=== PATIENT | female | born 1950 | race Caucasian/White ===

== ENCOUNTER 2016-09-17 16:15 | Outpatient (CLI) | payer MEDICARE, OTHER | END 2016-09-17 16:16 | LOC: LABRHC 16:15 | PROVIDERS: ATTEND Physician Assistant | DX: R39.15 Urgency of urination (principal); N39.498 Other specified urinary incontinence | CPT/HCPCS: 87088; 87186 ==

== ENCOUNTER 2016-11-06 08:41 | Outpatient (CLI) | payer MEDICARE, OTHER | END 2016-11-06 08:42 | LOC: POD 08:41 | PROVIDERS: ATTEND Podiatrist Public Medicine | DX: E11.51 Type 2 diabetes mellitus with diabetic peripheral angiopathy without gangrene (principal); B35.1 Tinea unguium; G60.0 Hereditary motor and sensory neuropathy; L60.0 Ingrowing nail; M79.674 Pain in right toe(s); M79.675 Pain in left toe(s) | CPT/HCPCS: 11721; G0463 ==

== ENCOUNTER 2016-12-19 08:11 | Outpatient (CLI) | payer MEDICARE, OTHER ==
[2016-12-19 09:12] LABS: eGFR (African) > 60; eGFR (Non-African) > 60
== END 2016-12-19 08:12 ==
LOC: LAB 08:11
PROVIDERS: ATTEND Internal Medicine Cardiovascular Disease
DX: I25.110 Atherosclerotic heart disease of native coronary artery with unstable angina pectoris (principal)
CPT/HCPCS: 36415; 80053; 80061; 82172; 83721

== ENCOUNTER 2017-02-11 08:00 | Outpatient (CLI) | payer MEDICARE, OTHER ==
[2017-02-11 08:29] LABS: BASOPHILS % 0.9 (0.0-1.5); EOSINOPHILS % 2.6 % (0.0-6.8); MEAN CORPUSCULAR HEMOGLOBIN 32.8 pg (28.0-34.0); MEAN CORPUSCULAR VOLUME 98.6 fl (80.0-100.0); MONOCYTES % 5.4 % (0.0-11.0); NEUTROPHILS # 4.8 # k/uL (1.4-7.7)
[2017-02-11 08:48] LABS: eGFR (African) > 60; eGFR (Non-African) > 60
== END 2017-02-11 08:02 ==
LOC: LAB 08:00
PROVIDERS: ATTEND Surgery
DX: I99.8 Other disorder of circulatory system (principal); E11.9 Type 2 diabetes mellitus without complications
CPT/HCPCS: 36415; 80048; 83036; 85025

== ENCOUNTER 2017-02-12 10:30 | Outpatient (CLI) | payer MEDICARE, OTHER | END 2017-02-12 10:32 | LOC: POD 10:30 | PROVIDERS: ATTEND Podiatrist Public Medicine | DX: B35.1 Tinea unguium (principal); L60.0 Ingrowing nail; M79.675 Pain in left toe(s); M79.674 Pain in right toe(s); E11.51 Type 2 diabetes mellitus with diabetic peripheral angiopathy without gangrene; G60.0 Hereditary motor and sensory neuropathy | CPT/HCPCS: 11721; G0463 ==

== ENCOUNTER 2017-03-10 08:00 | Outpatient (CLI) | payer MEDICARE, OTHER ==
[2017-03-10 08:23] LABS: BASOPHILS % 1.1 (0.0-1.5); EOSINOPHILS % 2.4 % (0.0-6.8); MEAN CORPUSCULAR HEMOGLOBIN 32.4 pg (28.0-34.0); MEAN CORPUSCULAR VOLUME 98.1 fl (80.0-100.0); MONOCYTES % 4.8 % (0.0-11.0); NEUTROPHILS # 4.3 # k/uL (1.4-7.7)
[2017-03-10 08:43] LABS: eGFR (African) > 60; eGFR (Non-African) > 60
== END 2017-03-10 08:10 ==
LOC: LAB 08:00
PROVIDERS: ATTEND Surgery
DX: I77.1 Stricture of artery (principal)
CPT/HCPCS: 36415; 80048; 85025

== ENCOUNTER 2017-03-25 07:58 | Outpatient (CLI) | payer MEDICARE, OTHER ==
--- NOTE | 2017-03-25 15:13 | Diagnostic Imaging Report ---
DEBRA ABURTO [facility] [address] [facility].[address] [address] Report Submission Date: Mar 25, 2017 8:19:48 AM CDT Patient Study Name: HERMES CHAVEZ Date: Mar 25, 2017 8:05:10 AM CDT MRN: [id number] Modality Type: CR Gender: F Description: SHOULDER : 48 Institution: [facility] Physician: DEBRA ABURTO HISTORY: 66-year-old female with left shoulder pain since fall 5 months ago COMPARISON: None available TECHNIQUE: 3 views of the left shoulder were performed. FINDINGS: No acute fracture or dislocation about the left shoulder. There is mild acromioclavicular hypertrophy. No significant loss of subacromial space. There are postoperative changes of median sternotomy and left subclavian arterial stent. IMPRESSION: 1. No fracture or acute osseous abnormality of the left shoulder. 2. Mild acromioclavicular hypertrophy. Electronically signed on Mar 25, 2017 8:19:48 AM CDT by: Jorge L HOWELL
== END 2017-03-25 08:00 ==
LOC: LAB 07:58
PROVIDERS: ATTEND Family Medicine
DX: M25.512 Pain in left shoulder (principal)
CPT/HCPCS: 73030

== ENCOUNTER 2017-05-07 09:20 | Outpatient (CLI) | payer MEDICARE, OTHER | END 2017-05-07 09:21 | LOC: LAB 09:20 | PROVIDERS: ATTEND Family Medicine | DX: R61 Generalized hyperhidrosis (principal) | CPT/HCPCS: 36415; 80048; 84443 ==

== ENCOUNTER 2017-05-28 11:13 | Outpatient (CLI) | payer MEDICARE, OTHER | END 2017-05-28 11:14 | LOC: POD 11:13 | PROVIDERS: ATTEND Podiatrist Public Medicine | DX: B35.1 Tinea unguium (principal); L60.0 Ingrowing nail; M79.674 Pain in right toe(s); M79.675 Pain in left toe(s); G60.0 Hereditary motor and sensory neuropathy; E11.51 Type 2 diabetes mellitus with diabetic peripheral angiopathy without gangrene | CPT/HCPCS: 11720; G0463 ==

== ENCOUNTER 2017-08-27 09:11 | Outpatient (CLI) | payer MEDICARE, OTHER | END 2017-08-27 09:12 | LOC: POD 09:11 | PROVIDERS: ATTEND Podiatrist Public Medicine | DX: E11.51 Type 2 diabetes mellitus with diabetic peripheral angiopathy without gangrene (principal); B35.1 Tinea unguium; G60.0 Hereditary motor and sensory neuropathy; L60.0 Ingrowing nail; M79.674 Pain in right toe(s); M79.675 Pain in left toe(s) | CPT/HCPCS: 11721; G0463 ==

== ENCOUNTER 2017-10-22 13:41 | Outpatient (CLI) | payer MEDICARE, OTHER | END 2017-10-22 13:42 | LOC: LAB 13:41 | PROVIDERS: ATTEND Family Medicine | DX: E11.9 Type 2 diabetes mellitus without complications (principal) | CPT/HCPCS: 36415; 83036 ==

== ENCOUNTER 2017-11-26 08:23 | Outpatient (CLI) | payer MEDICARE, OTHER | END 2017-11-26 08:24 | LOC: POD 08:23 | PROVIDERS: ATTEND Podiatrist Public Medicine | DX: E11.51 Type 2 diabetes mellitus with diabetic peripheral angiopathy without gangrene (principal); B35.1 Tinea unguium; G60.0 Hereditary motor and sensory neuropathy; L60.0 Ingrowing nail; M79.674 Pain in right toe(s); M79.675 Pain in left toe(s) | CPT/HCPCS: 11721; G0463 ==

== ENCOUNTER 2018-01-05 07:58 | Emergency (ER) | payer MEDICARE, OTHER ==
[2018-01-05] MEDS: MORPHINE SULFATE 4 MG/ML PREFILLED SYR IVP ONE (08:10)
[2018-01-05] MEDS: ASPIRIN 81 MG CHEW TAB PO ONE (08:10)
[2018-01-05 08:29] LABS: BASOPHILS % 0.4 (0.0-1.5); EOSINOPHILS % 1.2 % (0.0-6.8); MEAN CORPUSCULAR HEMOGLOBIN 31.7 pg (28.0-34.0); MEAN CORPUSCULAR VOLUME 95.8 fl (80.0-100.0); MONOCYTES % 4.3 % (0.0-11.0)
[2018-01-05] MEDS: ASPIRIN 81 MG CHEW TAB ONE (08:37)
[2018-01-05] MEDS: MORPHINE SULFATE 4 MG/ML PREFILLED SYR ONE (08:38)
[2018-01-05 08:44] LABS: eGFR (African) > 60; eGFR (Non-African) > 60
[2018-01-05] MEDS: MORPHINE SULFATE 2 MG/ML PREFILLED SYR IVP ONE (09:25)
--- NOTE | 2018-01-05 09:59 | ED Physician Documentation ---
Chest Pain - HISTORIAN Historian: patient - HPI Stated Complaint: Chest pain Chief Complaint: Chest Pain Onset: hours (0600) Timing: still present Duration: sudden-onset Last known Well Date: 01/05/18 Last Known Well Time: 03:00 (no chest pain when she was up at 0300) Context: sleep (awoke from sleep with CP) Severity: severe (10/10) Quality: pressure, tightness Chest Pain Radiation: shoulders, back Chest Pain Signs/Symptoms: denies: nausea, vomiting, diaphoresis, cool extremities, dizziness, dyspnea, tachypnea, tachycardia, hypotension, palpitations, weakness, other Worsened By: nothing Relieved By: nothing Further Comments: yes (67 year old female patient presents with 10/10 chest pain. Patient states she awoke with CP around 0600, radiating to her back. Denies SOB, nausea, diaphoresis or palpitations. Did not take morning medications.) - ROS CONST: none, recent illness (son 2 months ago (ND)) MS/LYMPH: none GI/: none EYES/ENT: none SKIN/ENDO: none NEURO/PSYCH: none - PAST HX ND risk factors: hypertension, hyperlipidemia, cardiac disease, AMI, other ( Chronic kidney disease) DVT/PE Risk Factors: none Neuro deficit: other (neuro stimulator - chronic back pain) Surgeries/Procedures: cardiac bypass, cardiac cath, other (Left subclavian, right iliac stent; fem/pop, carotid endarterectomy - bilateral; left x2, ) Allergies/Adverse Reactions: Allergies Allergy/AdvReac Type Severity Reaction Status Date / Time No Known Allergies Allergy Verified 01/05/18 08:32 Home Medications: Ambulatory Orders Medication Instructions Recorded Levothyroxine Sodium [Synthroid] 50 mcg PO DAILY u2 11/08/14 Losartan Potassium 100 mg PO DAILY u2 11/08/14 [place]-3 Fatty Acids/Fish Oil [Fish 1 each PO DAILY av 11/08/14 Oil 1,000 Mg Capsule] Evolocumab [Repatha Sureclick] 140 mg SQ every 14 days 11/24/17 Propranolol HCl [Inderal] 20 mg PO DAILY 01/05/18 Rosuvastatin Calcium [Rosuvastatin 40 mg PO DAILY 01/05/18 Calcium] - SOCIAL HX Smoking History: quit greater than 1 year - FAMILY HX Family HX: CAD under 55 - VITAL SIGNS Vital Signs: Vital Signs Temp Pulse Resp BP Pulse Ox 98.2 F 69 19 143/77 100 01/05/18 08:18 01/05/18 09:30 01/05/18 08:18 01/05/18 08:18 01/05/18 09:30 - REVIEWED ASSESSMENTS Nursing Assessment Reviewed: Yes Vitals Reviewed: Yes Progress - Progress Progress: On arrival CP 10/10 - patient resting quietly, no grimacing; CP is not reproducible. Patient refuses nitroglycerin, reports "it makes my body shake all over, severe headache" Chest pain improved to 7/10 after 4 mg of morphine. Chest pain down to 2/10 [address] Solorzano - recommends consultation with Dr Roe. Shared that patient's son suddenly of ND, 2 months ago. Patient is now caring for her 4 great-grandchildren. 0940 Call to [facility] - discussed with Richard boiler house mechanic [phone] Call from [facility] - orders to discharge patient and have her go to Dr Roe's office for appointment this morning. 1000 Updated patient on plan of care; agrees to go to Dr Roe's office. Denies any CP 0/10 - EKG/XRAY/CT EKG: rhythm (Rate 72, artifact from neuro stimulator. ) ED Results Lab/Radiology - Lab Results Lab Results: Lab Results 01/05/18 01/05/18 01/05/18 08:15 08:15 08:15 WBC 10.50 K/ul K/ul (4.00-12.00) RBC 4.15 M/ul M/ul (3.90-5.20) Hgb 13.1 g/dL g/dL (12.0-16.0) Hct 39.7 % % (34.5-46.5) MCV 95.8 fl fl (80.0-100.0) MCH 31.7 pg pg (28.0-34.0) MCHC 33.1 g/dL g/dL (30.0-36.0) RDW 13.5 % % (11.3-14.3) Plt Count 415 K/mm3 H K/mm3 (130-400) Neut % (Auto) 76.4 % % (39.0-79.0) Lymph % (Auto) 15.7 % L % (16.0-50.0) [place] % (Auto) 4.3 % % (0.0-11.0) Eos % (Auto) 1.2 % % (0.0-6.8) Baso % (Auto) 0.4 (0.0-1.5) Neut # (Auto) 8.0 # k/uL H # k/uL (1.4-7.7) Lymph # (Auto) 1.6 # k/uL # k/uL (0.6-4.0) [place] # (Auto) 0.4 # k/uL # k/uL (0.0-0.9) Eos # (Auto) 0.1 # k/uL # k/uL (0.0-0.6) Baso # (Auto) 0.0 # k/uL # k/uL (0.0-0.5) Reactive Lymphs % 2.0 % % (0.0-5.0) Reactive Lymphs # 0.2 # k/uL # k/uL (0.0-0.8) Sodium 139 mmol/L mmol/L (136-145) Potassium 4.0 mmol/L mmol/L (3.5-5.1) Chloride 96 mmol/L L mmol/L (98-107) Carbon Dioxide 31 mmol/L H mmol/L (22-30) BUN 54 mg/dL H mg/dL (7-17) Creatinine 1.10 mg/dL H mg/dL (0.52-1.04) Estimated Creat Clear 65 Est GFR ( Amer) > 60 (60 - ) Est GFR (Non-Af Amer) > 60 (60 - ) Glucose 97 mg/dL mg/dL (74-106) Calcium 10.3 mg/dL H mg/dL (8.4-10.2) Total Bilirubin < 0.1 mg/dL L mg/dL (0.2-1.3) AST 66 U/L H U/L (15-46) ALT 57 U/L U/L (13-69) Alkaline Phosphatase 195 U/L H U/L (38-126) Troponin I < 0.03 ng/mL L ng/mL (0.03-0.06) Total Protein 8.6 g/dL H g/dL (6.3-8.2) Albumin 4.6 g/dL g/dL (3.5-5.0) - Orders Orders: ED Orders Category Date Time Status Continuous EKG monitoring Q30M Care 01/05/18 08:07 Active Continuous Pulse Oximetry Q30M Care 01/05/18 08:[address] IV Lock 1T Care 01/05/18 08:13 Active CHEST 1VIEW [RAD] Stat Exams 01/05/18 08:13 Taken CBC/PLATELET/DIFF Stat Lab 01/05/18 08:15 Completed CMP Stat Lab 01/05/18 08:15 Completed TROPONIN I (cTnI) Stat Lab 01/05/18 08:15 Completed UA W/MICRO IF INDICATED Stat Lab 01/05/18 08:13 Ordered Aspirin Med 01/05/18 08:16 Discontinued 324 mg .ROUTE .STK-MED ONE Aspirin Med 01/05/18 08:10 Discontinued 324 mg PO NOW ONE Morphine Sulfate [DepoDUR] Med 01/05/18 08:16 Discontinued 4 mg .ROUTE .STK-MED ONE Morphine Sulfate [DepoDUR] Med 01/05/18 08:10 Discontinued 4 mg IVP NOW ONE Morphine Sulfate [DepoDur] Med 01/05/18 09:15 Discontinued 2 mg IVP NOW ONE EKG WITH COMPARISON Stat Ther 01/05/18 08:07 Completed Chest Pain Physical Exam - EXAM General Appearance: no acute distress, alert EENT: eye inspection normal, ENT inspection normal, pharynx normal, no signs of dehydration, ATIF, no nystagmus, TM's nml Respiratory: no resp. distress, nml breath sounds, other (chest pain is not reproducible with palpation) CVS: reg. rate & rhythm, no murmur, no gallop, no friction rub, pulses full, pulses equal Abdomen: soft, no organomegaly, normal bowel sounds, no abdominal bruit, no distension Skin: normal color, warm/dry, NR, INT, DR Extremities: non-tender, normal range of motion, no evidence of injury, no edema , J, MATERIAL HANDLER FLOORPERSON Neuro: oriented X3, CN's nml as tested, motor nml, sensation nml, mood/affect nml Discharge Clincal Impression: Elevated LFTs, Hypercalcemia Chest pain Qualifiers: Chest pain type: unspecified Qualified Code(s): R07.9 - Chest pain, unspecified Chronic renal disease Qualifiers: Chronic kidney disease stage: stage 1 Qualified Code(s): N18.1 - Chronic kidney disease, stage 1 Referrals: Tonya Solorzano MD [Primary Care Provider] - 2 Days Additional Instructions: Please go directly to Dr Roe's office to be seen this morning. Take all of your paperwork and disc to the office. Condition: Stable Disposition: 01 HOME, SELF-CARE Decision to Admit: NO Decision Time: 09:59
--- NOTE | 2018-01-05 10:07 | Diagnostic Imaging Report ---
KERON TYLER (LINEN ROOM WORKER) - ER [facility] [address] [address] Report Submission Date: January 05, 2018 9:54:53 AM CDT Patient Study Name: HERMES CHAVEZ Date: January 05, 2018 8:34:41 AM CDT Modality Type: DX Gender: F Description: CHEST : 48 Institution: [facility] Physician: KERON TYLER (LINEN ROOM WORKER) - ER A single frontal view of the chest History: CHEST PAIN X A FEW HOURS No comparison studies are available at the time of dictation Patient is post median sternotomy, lower sternotomy wires are not clearly visualized to assess their integrity Multiple artifacts are present over the study. Cardiac size upper limits of normal. There is no focal consolidation or pleural effusion. No pneumothorax. Basilar predominant chronic interstitial lung changes are noted with atelectasis. Impression: 1. Left basilar patchy infiltrate/atelectasis. 2. Post sternotomy. Basilar chronic interstitial changes Electronically signed on January 05, 2018 9:54:53 AM CDT by: Mitzi HOWELL
[2018-01-05 10:21] VITALS: BP 134/59
== END 2018-01-05 10:19 | disposition home or self-care (01) ==
LOC: ED 07:58
DX: N18.1 Chronic kidney disease, stage 1 (principal); R07.9 Chest pain, unspecified; E83.52 Hypercalcemia; R94.5 Abnormal results of liver function studies
CPT/HCPCS: 71045; 80053; 84484; 85025; 93005; J2270; 96374; 96376; 99285; S1016

== ENCOUNTER 2018-02-09 07:54 | Outpatient (CLI) | payer MEDICARE, OTHER | END 2018-02-09 07:55 | LOC: LAB 07:54 | PROVIDERS: ATTEND Family Medicine | DX: E11.9 Type 2 diabetes mellitus without complications (principal) | CPT/HCPCS: 36415; 80061; 83036 ==

== ENCOUNTER 2018-03-25 08:08 | Outpatient (CLI) | payer MEDICARE, OTHER | END 2018-03-25 08:09 | LOC: POD 08:08 | PROVIDERS: ATTEND Podiatrist Public Medicine | DX: E11.51 Type 2 diabetes mellitus with diabetic peripheral angiopathy without gangrene (principal); B35.1 Tinea unguium; G60.0 Hereditary motor and sensory neuropathy; L60.0 Ingrowing nail; M79.674 Pain in right toe(s); M79.675 Pain in left toe(s) | CPT/HCPCS: 11721; G0463 ==

== ENCOUNTER 2018-05-21 08:43 | Outpatient (CLI) | payer MEDICARE, OTHER | END 2018-05-21 08:44 | LOC: LAB 08:43 | PROVIDERS: ATTEND Family Medicine | DX: E11.9 Type 2 diabetes mellitus without complications (principal) | CPT/HCPCS: 36415; 83036 ==

== ENCOUNTER 2018-07-08 13:26 | Outpatient (CLI) | payer MEDICARE, OTHER ==
--- NOTE | 2018-07-08 20:10 | Diagnostic Imaging Report ---
JASWANT GRISSOM [facility] [address] [facility].[address] [address] Report Submission Date: Jul 08, 2018 2:36:33 PM MONOMER RECOVERY OPERATOR Patient Study Name: HERMES CHAVEZ Date: Jul 08, 2018 1:30:20 PM MONOMER RECOVERY OPERATOR Modality Type: DX Gender: F Description: LOWER EXTREMITY : 48 Institution: [facility] Physician: JASWANT GRISSOM Examination: Plain film left ankle History: LEFT ANKLE, LATERAL ANKLE PAIN AFTER FALL YESTERDAY (Hx) Findings: 3 views of the left ankle demonstrates spiral lucency involving the distal fibula. Remaining cortical margins are intact. Talar dome is intact. Lateral soft tissue swelling. Small joint effusion. Impression: Spiral distal fibular fracture. Soft tissue swelling and joint effusion. Electronically signed on Jul 08, 2018 2:36:33 PM MONOMER RECOVERY OPERATOR by: Edilberto HOWELL
== END 2018-07-08 13:28 ==
LOC: RAD 13:26
PROVIDERS: ATTEND Family Medicine
DX: S82.442A Displaced spiral fracture of shaft of left fibula, initial encounter for closed fracture (principal); W19.XXXA Unspecified fall, initial encounter
CPT/HCPCS: 73610

== ENCOUNTER 2018-07-17 08:10 | Outpatient (CLI) | payer MEDICARE, OTHER ==
--- NOTE | 2018-07-18 04:17 | Diagnostic Imaging Report ---
JASWANT GRISSOM [facility] [address] [facility].[address] [address] Report Submission Date: Jul 17, 2018 8:56:34 AM AUDIO DIRECTOR Patient Study Name: HERMES CHAVEZ Date: Jul 17, 2018 8:12:14 AM AUDIO DIRECTOR Modality Type: DX Gender: F Description: LOWER EXTREMITY : 48 Institution: [facility] Physician: JASWANT GRISSOM Left ankle History: Follow up ankle fracture Three views of the left ankle were obtained and comparison made with July 08, 2018. There is an unchanged, nondisplaced and nondistracted spiral type fracture of the distal fibula. There is mild soft tissue swelling laterally. The talar dome and ankle mortise are intact. Impression: Unchanged, nondisplaced spiral type fracture of the distal fibula with mild soft tissue swelling laterally. Electronically signed on Jul 17, 2018 8:56:34 AM AUDIO DIRECTOR by: Munira HOWELL
== END 2018-07-17 08:11 ==
LOC: RAD 08:10
PROVIDERS: ATTEND Family Medicine
DX: S82.442A Displaced spiral fracture of shaft of left fibula, initial encounter for closed fracture (principal); R22.42 Localized swelling, mass and lump, left lower limb
CPT/HCPCS: 73610

== ENCOUNTER 2018-08-13 09:21 | Outpatient (CLI) | payer MEDICARE, OTHER ==
--- NOTE | 2018-08-13 16:20 | Diagnostic Imaging Report ---
RASHARD MEDEIROS [facility] [address] [facility].[address] [address] Report Submission Date: Aug 13, 2018 10:21:23 AM WIRE PULLER Patient Study Name: HERMES CHAVEZ Date: Aug 13, 2018 9:38:49 AM WIRE PULLER Modality Type: DX Gender: F Description: LOWER EXTREMITY : 48 Institution: [facility] Physician: RASHARD MEDEIROS Examination: Plain film left ankle History: FOLLOW UP. PAIN IN LEFT ANKLE AFTER FALL ON 07/07/18 (Hx) / Comparison exam: 08 July 2018, 17 July 2018 Findings: 3 views of the left ankle demonstrates diffuse osteopenia. Spiral lucency involving the distal fibula again identified with limited crossing trabecula. No new cortical irregularity. Soft tissue swelling. Impression: Limited healing distal fibular fracture. Soft tissue swelling. Electronically signed on Aug 13, 2018 10:21:23 AM WIRE PULLER by: Edilberto HOWELL
--- NOTE | 2018-08-13 16:22 | Diagnostic Imaging Report ---
RASHARD MEDEIROS [facility] [address] [facility].[address] [address] Report Submission Date: Aug 13, 2018 10:16:23 AM FITTER HAND Patient Study Name: HERMES CHAVEZ Date: Aug 13, 2018 9:32:57 AM FITTER HAND Modality Type: DX Gender: F Description: LOWER EXTREMITY : 48 Institution: [facility] Physician: RASHARD MEDEIROS Examination: Plain film right foot History: PAIN IN LATERAL RT FOOT AFTER FALL 08/07/18 (Hx) Findings: 3 views of the right foot demonstrates oblique lucency with displacement involving the mid to distal aspect of the 5th metatarsal. Remaining cortical margins are grossly intact. Articular degenerative. Calcaneal spurs. Impression: Fracture mid to distal 5th metatarsal. Electronically signed on Aug 13, 2018 10:16:23 AM FITTER HAND by: Edilberto HOWELL
== END 2018-08-13 09:23 ==
LOC: RAD 09:21
PROVIDERS: ATTEND Physician Assistant
DX: S82.832D Other fracture of upper and lower end of left fibula, subsequent encounter for closed fracture with routine healing (principal); S92.351A Displaced fracture of fifth metatarsal bone, right foot, initial encounter for closed fracture; W19.XXXA Unspecified fall, initial encounter
CPT/HCPCS: 73610; 73630

== ENCOUNTER 2018-10-21 10:03 | Outpatient (CLI) | payer MEDICARE, OTHER ==
--- NOTE | 2018-10-21 13:59 | Diagnostic Imaging Report ---
JASWANT GRISSOM [facility] [address] [facility].[address] [address] Report Submission Date: Oct 21, 2018 10:43:09 AM CLIMATOLOGY TEACHER Patient Study Name: HERMES CHAVEZ Date: Oct 21, 2018 10:12:13 AM CLIMATOLOGY TEACHER Modality Type: DX Gender: F Description: SHOULDER 2 VIEWS OR MORE : 48 Institution: [facility] Physician: JASWANT GRISSOM Examination: Plain film right shoulder History: Rt shoulder pain Comparison exams: None provided Findings: 2 views of the tight shoulder demonstrates humeral head cleft. Acromioclavicular joint degenerative changes. No evidence for fracture or dislocation. No soft tissue abnormality Impression: Articular degenerative changes. Suspect soft tissue abnormality, consider obtaining MRI shoulder to further evaluate. Electronically signed on Oct 21, 2018 10:43:09 AM CLIMATOLOGY TEACHER by: Edilberto HOWELL
== END 2018-10-21 10:05 ==
LOC: RAD 10:03
PROVIDERS: ATTEND Family Medicine
DX: M24.111 Other articular cartilage disorders, right shoulder (principal); M25.511 Pain in right shoulder
CPT/HCPCS: 73030

== ENCOUNTER 2018-11-16 15:30 | Outpatient (CLI) | payer MEDICARE, OTHER | END 2018-11-16 15:33 | LOC: LABRHC 15:30 | PROVIDERS: ATTEND Family Medicine | DX: R30.0 Dysuria (principal) | CPT/HCPCS: 87086 ==

== ENCOUNTER 2019-02-10 16:26 | Outpatient (CLI) | payer MEDICARE, OTHER | END 2019-02-10 16:28 | LOC: LABRHC 16:26 | PROVIDERS: ATTEND Family Medicine | DX: Z11.2 Encounter for screening for other bacterial diseases (principal) | CPT/HCPCS: 87086 ==

== ENCOUNTER 2019-04-26 09:27 | Outpatient (CLI) | payer MEDICARE, OTHER | END 2019-04-26 09:30 | LOC: LAB 09:27 | PROVIDERS: ATTEND Podiatrist Foot & Ankle Surgery | DX: E11.9 Type 2 diabetes mellitus without complications (principal); E16.8 Other specified disorders of pancreatic internal secretion; L70.0 Acne vulgaris | CPT/HCPCS: 36415; 83036 ==

== ENCOUNTER 2019-08-31 08:05 | Outpatient (CLI) | payer MEDICARE, OTHER | END 2019-08-31 08:10 | LOC: LAB 08:05 | PROVIDERS: ATTEND Clinical Nurse Specialist Medical-Surgical | DX: E55.9 Vitamin D deficiency, unspecified (principal); N95.9 Unspecified menopausal and perimenopausal disorder; E11.9 Type 2 diabetes mellitus without complications; Z87.891 Personal history of nicotine dependence | CPT/HCPCS: 36415; 80053; 82306; 82523; 83735; 83937; 84080; 84100 ==